=== PATIENT | female | born 1965 ===

== ENCOUNTER 2022-03-06 15:08 | Emergency (ER) | payer BC ==
[~2022-03-06] VITALS: Ht 165.1 cm; Wt 59.1 kg
[2022-03-06 15:16] VITALS: BP 146/80; TEMP 98.4
[2022-03-06 16:25] VITALS: PULSE 78
== END 2022-03-06 16:36 | disposition home or self-care (01) ==
LOC: COL.ER 15:08
DX: S61.412A Laceration without foreign body of left hand, initial encounter (principal); Z23 Encounter for immunization; W27.2XXA Contact with scissors, initial encounter